=== PATIENT | male | born 1970 | race Caucasian/White ===

== ENCOUNTER 2018-10-11 07:27 | Day surgery (SDC) | payer OTHER ==
[~2018-10-11] VITALS: Ht 175.3 cm; Wt 54.9 kg
[2018-10-11 07:57] LABS: BASOPHILS 0.2 % (0-2); EOSINOPHILS 1.9 % (0-7); HEMATOCRIT 45.2 % (42.0-54.0); HEMOGLOBIN 16.5 g/dL (13.5-17.5); IMMATURE GRANULOCYTES 0.2 % (0-5); LYMPHOCYTES 23.9 % (15-50); MCH 35.3 pg (26.0-34.0); MCHC 36.5 g/dL (31.0-37.0); MCV 96.6 fL (80.0-100.0); MEAN PLATELET VOLUME 9.1 fL (7.4-10.4); MONOCYTES 9.7 % (2-11); NEUTROPHILS 64.1 % (40-80); PLATELET COUNT 174 10x3/uL (130-400); RBC 4.68 10x6/uL (4.20-6.10); RDW 13.2 % (11.5-14.5); WBC 5.1 10x3/uL (4.8-10.8)
[2018-10-11 08:12] LABS: CALC OSMOLALITY 275 mosm/kg (275-300); CALCIUM 9.4 mg/dL (8.5-10.1); CARBON DIOXIDE 31.4 mmol/L (21.0-32.0); CHLORIDE - SERUM 100 mmol/L (98-107); GLUCOSE 101 mg/dL (74-106); POTASSIUM - SERUM 3.8 mmol/L (3.5-5.1); SODIUM 140 mmol/L (136-145); UREA NITROGEN 5 mg/dL (7-18); eGFR NON AFRICAN AMERICAN 85 mL/min (90-120)
[2018-10-11 08:23] VITALS: BP 95/62; Ht 175.3 cm; Wt 54.9 kg
[2018-10-11] MEDS ORDERED: HYDROCODON-ACE1 EA10 PO (10:59)
--- NOTE | 2018-10-17 07:54 | OP ---
PATIENT NAME: DM ELLSWORTH MEDICAL RECORD: [id number] :68 LOCATION:D.OPS ADMISSION DATE: SURGEON: YOSELIN MCDONOUGH MD DATE OF OPERATION: 10/11/2018 PREOPERATIVE DIAGNOSES: 1. Thrombosed external hemorrhoid. 2. Tobacco dependence syndrome. POSTOPERATIVE DIAGNOSES: 1. Thrombosed external hemorrhoid. 2. Tobacco dependence syndrome. PROCEDURES: 1. Right posterior hemorrhoidectomy. 2. Left lateral hemorrhoid banding. SURGEON: Yoselin Mcdonough MD REPORT OF PROCEDURE: Anoscope was inserted and a 360 degree inspection was performed of the anus. The right posterior hemorrhoid was firm and inflamed. A suture was placed at the base of this and the distal rectum and tied down tightly using a 2-0 chromic. The hemorrhoid was then excised using electrocautery with care taken not to injure the patient's sphincteric musculature. The sphincters were easily visualized at the conclusion of this and we treated the area with electrocautery to stop the bleeding that was found. We then used the previously placed chromic suture and ran it out of the rectum to the anoderm in a locking fashion closing up the skin. We then reinspected and there was a collection of hemorrhoidal tissue internally on the left lateral aspect a little more posteriorly. A hemorrhoid banding was performed of this collection of tissue. At this point, a piece of Gelfoam with Americaine was inserted in the rectum and we infused 10 mL of 0.25% Marcaine with epinephrine into the surrounding tissues. COMPLICATIONS: None. CONDITION: Stable. ANESTHESIA: General endotracheal and local. BLOOD LOSS: 30 mL. TRANSINT:[id number] Voice Confirmation ID: [id number] DOCUMENT ID: [id number] YOSELIN MCDONOUGH MD at 0754 CC: ERIC RAMOS [id number] DICTATION DATE: 10/11/18 1102 [facility]AN[facility]ER: 10/11/18 1230 [facility] 10/11/[address] [address]
== END 2018-10-11 11:51 | disposition home or self-care (01) ==
LOC: D.OPS 07:27 → D.PAN 10:00 → D.OPS 10:00
PROVIDERS: ATTEND Surgery
DX: K64.5 Perianal venous thrombosis (principal)